=== PATIENT | female | born 1965 | race African-American/Black ===

== ENCOUNTER 2017-04-19 12:55 | Outpatient (CLI) | payer BC ==
--- NOTE | 2017-04-19 16:14 | MMO ---
BILATERAL SCREENING MAMMOGRAM: Date: 04/19/17 COMPARISON: 05/04/16, 04/23/15, 04/23/14. HISTORY: Screening mammography. FINDINGS: Imaging performed with and without implant displacement. Intact bilateral breast implants are presen t. Benign calcification is noted medially on the left. There is no dominant mass or architectural distortion. No concerning microcalcifications are seen. IMPRESSION: BIRADS 2: Benign Finding(s) Stable bilateral breast implants. Annual screening mammography recommended. POS: LUIS MANUEL
--- NOTE | 2017-04-19 16:57 | BD ---
DEXA BONE DENSITY SCAN: Date: 04-19-17 Comparison: None. History: Screening for osteoporosis. 51-year-old post-menopausal female. Lumbar Spine: BMD (g/cm2) L1 1.026 T-Score: 0.3 L2 1.073 T-Score: 0.4 L3 1.078 T-Score: -0.1 L4 1.089 T-Score: 0.3 L1-L4 1.069 T-Score: 0.2 Femoral Neck: 0.928 T-Score: 0.7 Total Femur: 1.058 T-Score: 1.0 The FRAX fracture assessment tool is not reported as all T-scores are at or above -1.0. Impression: Normal bone mineral density exam. POS: LUIS MANUEL
== END 2017-04-19 12:56 | disposition home or self-care (01) ==
LOC: MAMMO 12:55
PROVIDERS: ATTEND Family Medicine
DX: Z12.31 Encounter for screening mammogram for malignant neoplasm of breast (principal); Z13.820 Encounter for screening for osteoporosis; N95.9 Unspecified menopausal and perimenopausal disorder
CPT/HCPCS: 77067; 77080; G0202

== ENCOUNTER 2017-07-05 14:38 | Outpatient (CLI) | payer BC ==
--- NOTE | 2017-07-05 15:39 | ULT ---
THYROID ULTRASOUND: Date: 07/05/17 HISTORY: History of thyroid nodules. COMPARISON: None available. TECHNIQUE: Multiplanar Fuentes scale and color Doppler images were obtained in a thyroid ultrasound. FINDINGS: The thyroid lobes are heterogeneous in appearance. There are multiple tiny hypoechoic regions in the thyroid which may represent small nodules. The largest is seen on the right measuring 4.0 mm in great est dimension. None of these tiny hypoechoic regions have echogenic microcalcifications and all of th dalila are well circumscribed. The thyroid lobes measure 4.0 and 3.5 cm in length on the right and left, respectively. IMPRESSION: Multinodular thyroid. POS: LUIS MANUEL
== END 2017-07-05 14:39 | disposition home or self-care (01) ==
LOC: ULT 14:38
PROVIDERS: ATTEND Internal Medicine
DX: R22.1 Localized swelling, mass and lump, neck (principal); E04.2 Nontoxic multinodular goiter
CPT/HCPCS: 76536

== ENCOUNTER 2018-03-29 14:47 | Outpatient (CLI) | payer BC ==
--- NOTE | 2018-03-29 17:06 | RAD ---
RIGHT KNEE 4 VIEWS: Date: 03/29/18 HISTORY: Right knee pain. COMPARISON: None. FINDINGS: No fracture. No malalignment. Mild medial compartment small osteophytes. No significant joint effusio n. IMPRESSION: Mild medial compartment degenerative changes. POS: [facility]
== END 2018-03-29 14:48 | disposition home or self-care (01) ==
LOC: BICRAD 14:47
PROVIDERS: ATTEND Family Medicine
DX: M25.561 Pain in right knee (principal); M17.11 Unilateral primary osteoarthritis, right knee

== ENCOUNTER 2018-04-26 13:57 | Outpatient (CLI) | payer BC | END 2018-04-26 13:58 | disposition home or self-care (01) | LOC: BICMAMMO 13:57 | PROVIDERS: ATTEND Family Medicine | DX: Z12.31 Encounter for screening mammogram for malignant neoplasm of breast (principal); Z80.3 Family history of malignant neoplasm of breast | CPT/HCPCS: 77063; 77067 ==

== ENCOUNTER 2019-05-01 09:47 | Outpatient (CLI) | payer BC ==
--- NOTE | 2019-05-01 13:54 | MMO ---
Bilateral MAMMO Bilat Screen [facility]. CLINICAL HISTORY: Patient is 53 years old and is seen for screening. The patient has the following family history of breast cancer: maternal grandmother. The patient has no personal history of cancer. The patient has a history of bilateral Implants in 2008. VIEWS: The views performed were: bilateral craniocaudal with tomosynthesis and bilateral mediolateral oblique with tomosynthesis. FILMS COMPARED: The present examination has been compared to prior imaging studies performed at [facility] on 04/23/2015, 05/04/2016, 04/19/2017 and 04/26/2018. This study has been interpreted with the assistance of computer-aided detection. MAMMOGRAM FINDINGS: There are scattered fibroglandular densities. There are no suspicious masses, suspicious calcifications, or new areas of architectural distortion. Normal implants are present. IMPRESSION: THERE IS NO MAMMOGRAPHIC EVIDENCE OF MALIGNANCY. A ROUTINE FOLLOW-UP MAMMOGRAM IN 1 YEAR IS RECOMMENDED. THE RESULTS OF THIS EXAM WERE SENT TO THE PATIENT. ACR BI-RADS Category 1 - Negative MAMMOGRAPHY NOTE: 1. A negative mammogram report should not delay a biopsy if a dominant of clinically suspicious mass is present. 2. Approximately 10% to 15% of breast cancers are not detected by mammography. 3. Adenosis and dense breasts may obscure an underlying neoplasm. Reported by: KARI OQUENDO MD Electonically Signed: [id number]
== END 2019-05-01 09:48 | disposition home or self-care (01) ==
LOC: BICMAMMO 09:47
PROVIDERS: ATTEND Family Medicine
DX: Z12.31 Encounter for screening mammogram for malignant neoplasm of breast (principal); Z80.3 Family history of malignant neoplasm of breast
CPT/HCPCS: 77063; 77067

== ENCOUNTER 2020-05-09 13:38 | Outpatient (CLI) | payer BC ==
--- NOTE | 2020-05-09 14:07 | MMO ---
Bilateral MAMMO Bilat Screen [facility]. CLINICAL HISTORY: Patient is 54 years old and is seen for screening. The patient has the following family history of breast cancer: maternal grandmother. The patient has no personal history of cancer. The patient has a history of bilateral Implants in 2008. VIEWS: The views performed were: bilateral craniocaudal with tomosynthesis and bilateral mediolateral oblique with tomosynthesis. FILMS COMPARED: The present examination has been compared to prior imaging studies performed at [facility] on 05/04/2016, 04/19/2017, 04/26/2018 and 05/01/2019. This study has been interpreted with the assistance of computer-aided detection. MAMMOGRAM FINDINGS: There are scattered fibroglandular densities. There are no suspicious masses, suspicious calcifications, or new areas of architectural distortion. IMPRESSION: THERE IS NO MAMMOGRAPHIC EVIDENCE OF MALIGNANCY. A ROUTINE FOLLOW-UP MAMMOGRAM IN 1 YEAR IS RECOMMENDED. THE RESULTS OF THIS EXAM WERE SENT TO THE PATIENT. ACR BI-RADS Category 1 - Negative MAMMOGRAPHY NOTE: 1. A negative mammogram report should not delay a biopsy if a dominant of clinically suspicious mass is present. 2. Approximately 10% to 15% of breast cancers are not detected by mammography. 3. Adenosis and dense breasts may obscure an underlying neoplasm. Reported by: MARIUSZ FRANCO MD Electonically Signed: [id number]
== END 2020-05-09 13:39 | disposition home or self-care (01) ==
LOC: BICMAMMO 13:38
PROVIDERS: ATTEND Family Medicine
DX: Z12.31 Encounter for screening mammogram for malignant neoplasm of breast (principal); Z98.82 Breast implant status; Z80.3 Family history of malignant neoplasm of breast
CPT/HCPCS: 77063; 77067

== ENCOUNTER 2020-05-20 14:30 | Outpatient (CLI) | payer BC ==
--- NOTE | 2020-05-20 15:34 | ULT ---
THYROID ULTRASOUND INDICATION: Multinodular goiter TECHNIQUE: Grayscale and color Doppler images were obtained of the thyroid gland. COMPARISON: Prior thyroid ultrasound dated July 05, 2017 FINDINGS: Right thyroid lobe: The right thyroid lobe measures 4.3 x 1.7 x 1.8 cm. There are numerous small hypo echoic nodules throughout the right thyroid lobe. The largest measures 4 mm within the right mid thyroid lobe. This is stable to the prior exam Thyroid isthmus: The thyroid isthmus measures 0.4 cm. There are numerous small hypoechoic nodules wit hin the thyroid is Left thyroid lobe: The left thyroid lobe measures 3.4 x 1.3 x 2.3 cm. There are numerous small hypoec hoic nodules within the left thyroid lobe that appears similar to the prior exam. IMPRESSION: 1. Multinodular goiter. The largest nodule is seen within the right mid thyroid lobe measuring 4 mm. Its solid and hypoechoic and consistent with a TIRADS 3 lesion. The nodule is stable to the comparison exam. The nodule is less than 1.5 cm in size; therefore, no sonographic follow up is recom mended.
== END 2020-05-20 14:31 | disposition home or self-care (01) ==
LOC: ULT 14:30
PROVIDERS: ATTEND Internal Medicine
DX: E04.2 Nontoxic multinodular goiter (principal)
CPT/HCPCS: 76536

== ENCOUNTER 2020-08-30 09:13 | Outpatient (CLI) | payer BC | END 2020-08-30 09:14 | disposition home or self-care (01) | LOC: BICMRI 09:13 | PROVIDERS: ATTEND Family Medicine | DX: M79.661 Pain in right lower leg (principal); M65.871 Other synovitis and tenosynovitis, right ankle and foot; M76.61 Achilles tendinitis, right leg ==

== ENCOUNTER 2021-04-24 14:59 | Outpatient (CLI) | payer BC | END 2021-04-24 15:00 | disposition home or self-care (01) | LOC: BICMRI 14:59 | PROVIDERS: ATTEND Family Medicine | DX: M25.552 Pain in left hip (principal) ==

== ENCOUNTER 2021-05-23 08:24 | Outpatient (CLI) | payer BC | END 2021-05-23 08:25 | disposition home or self-care (01) | LOC: BICMAMMO 08:24 | PROVIDERS: ATTEND Family Medicine | DX: Z12.31 Encounter for screening mammogram for malignant neoplasm of breast (principal); Z80.3 Family history of malignant neoplasm of breast; Z98.82 Breast implant status | CPT/HCPCS: 77063; 77067 ==

== ENCOUNTER 2022-03-31 15:08 | Outpatient (CLI) | payer BC | END 2022-03-31 15:09 | disposition home or self-care (01) | LOC: BICULT 15:08 | PROVIDERS: ATTEND Family Medicine | DX: T14.90XA Injury, unspecified, initial encounter (principal) | CPT/HCPCS: 76999 ==

== ENCOUNTER 2022-05-25 09:37 | Outpatient (CLI) | payer BC | END 2022-05-25 09:38 | disposition home or self-care (01) | LOC: BICMAMMO 09:37 | PROVIDERS: ATTEND Family Medicine | DX: Z12.31 Encounter for screening mammogram for malignant neoplasm of breast (principal); Z98.82 Breast implant status; Z80.3 Family history of malignant neoplasm of breast | CPT/HCPCS: 77063; 77067 ==

== ENCOUNTER 2023-05-28 11:11 | Outpatient (CLI) | payer BC | END 2023-05-28 11:12 | disposition home or self-care (01) | LOC: BICMAMMO 11:11 | PROVIDERS: ATTEND Family Medicine | DX: Z12.31 Encounter for screening mammogram for malignant neoplasm of breast (principal) | CPT/HCPCS: 77063; 77067 ==

== ENCOUNTER 2023-08-13 13:05 | Outpatient (CLI) | payer BC | END 2023-08-13 13:06 | disposition home or self-care (01) | LOC: BICMRI 13:05 | PROVIDERS: ATTEND Family Medicine | DX: T85.42XA Displacement of breast prosthesis and implant, initial encounter (principal); Z98.82 Breast implant status | CPT/HCPCS: A9577; C8908 ==

== ENCOUNTER 2024-02-04 08:02 | Outpatient (CLI) | payer BC | END 2024-02-04 08:03 | disposition home or self-care (01) | LOC: ULT 08:02 | PROVIDERS: ATTEND Family Medicine | DX: R10.2 Pelvic and perineal pain (principal); Z90.710 Acquired absence of both cervix and uterus; Z90.722 Acquired absence of ovaries, bilateral | CPT/HCPCS: 76700; 76856 ==

== ENCOUNTER 2024-05-29 08:29 | Outpatient (CLI) | payer BC | END 2024-05-29 08:30 | disposition home or self-care (01) | LOC: BICMAMMO 08:29 | PROVIDERS: ATTEND Family Medicine | DX: Z12.31 Encounter for screening mammogram for malignant neoplasm of breast (principal); Z80.3 Family history of malignant neoplasm of breast; Z98.82 Breast implant status; Z98.890 Other specified postprocedural states | CPT/HCPCS: 77063; 77067 ==